=== PATIENT | female | born 1965 | race Caucasian/White ===

== ENCOUNTER → 2017-05-16 | Emergency (ER) | payer OTHER ==
[~2017-05-16] VITALS: Ht 152.4 cm; Wt 63.5 kg
[~2017-05-16] MED LIST: LIPO-FLAVONOID1 EACH PO; MECLIZINE HCL25 MG PO
== END | disposition home or self-care (01) ==
LOC: ER 10:09
DX: R42 Dizziness and giddiness (principal); R10.2 Pelvic and perineal pain

== ENCOUNTER 2017-05-17 11:49 | Outpatient (CLI) | payer OTHER ==
[~2017-05-17] VITALS: Ht 152.4 cm; Wt 63.5 kg
[~2017-05-17 11:49] MED LIST changes: -LIPO-FLAVONOID1 EACH PO
[2017-05-17] MEDS ORDERED: LIPO-FLAVONOID1 EACH PO (13:45)
== END 2017-05-17 12:10 | disposition home or self-care (01) ==
LOC: OFIC 805 11:49
DX: R42 Dizziness and giddiness (principal); G51.3 Clonic hemifacial spasm